=== PATIENT | female | born 1985 | race Caucasian/White ===

== ENCOUNTER 2018-02-28 19:56 | Emergency (ER) | payer MEDICAID, OTHER ==
[2018-02-28 20:39] VITALS: BP 130/87
--- NOTE | 2018-02-28 20:39 | RAD ---
Indication: Right knee pain. 4 views of the right knee demonstrates joint space to be well preserved. Instrumentation of the tibial tuberosity. IMPRESSION: Instrumentation of the tibial tuberosity with no recent injury.
[2018-02-28] MEDS ORDERED: Ketorolac INJ* 60 MG/2 ML VIAL IM ONE (20:54)
[2018-02-28 21:25] LABS: EGFR Non-African American 126.3 (>60); Uric Acid 2.8 mg/dL (2.3-6.6)
[2018-02-28 21:34] LABS: ABS Basophils 0 10^3/ul (0-0.2); ABS Eosinophils 0.1 10^3/ul (0-0.6); ABS Lymphocytes 3.1 10^3/ul (1.0-4.8); ABS Monocytes 0.7 10^3/ul (0-0.8); ABS Neutrophils 5.3 10^3/ul (1.5-7.7); ABS Nucleated RBC 0 10^3/ul; Eosinophil % 1.5 % (0-6); Hematocrit 40 % (35-47); Hemoglobin 13.3 g/dl (12.0-16.0); Lymphocyte % 33.9 % (25-47); Mean Corpuscular HGB Conc 34 g/dl (31-36); Mean Corpuscular Hemoglobin 31 pg (27-31); Mean Corpuscular Volume 92 fL (80-97); Mean Platelet Volume 8.3 um3 (7.4-10.4); Nucleated Red Blood Cells % 0.1; Platelet Count 249 10^3/ul (150-450); Red Blood Count 4.29 10^6/ul (4.0-5.4); Red Cell Distribution Width 14 % (10.5-15); White Blood Count 9.3 10^3/ul (3.5-10.8)
--- NOTE | 2018-03-01 20:46 | ED ---
Marques Watt Tiffany, scribed for Tevin Kunz MD on 02/28/18 at 2024 . Lower Extremity - HPI Summary HPI Summary: 32 year old F BIBA to [facility] complains of right knee pain s/p dislocating both knees while walking one hour ago. The patient rates the pain 8/10 in severity. Symptoms aggravated by straightening her right let. Symptoms alleviated by nothing. Patient reports right knee edema. States that right knee "went in by itself" after twisting her knees. Had right knee surgery in 2011 at [place], after which patient has had post-surgery problems with her right knee. - History of Current Complaint Stated Complaint: RT KNEE PAIN Time Seen by Provider: 02/28/18 20:08 Hx Obtained From: Patient Onset/Duration: Still Present - one hour ago Severity Currently: Severe Pain Intensity: 8 Pain Scale Used: 0-10 Numeric Location: Is Discrete @ - right knee Associated Signs And Symptoms: Positive: Swelling - right knee Aggravating Factor(s): Other - straightening R leg Alleviating Factor(s): Nothing - Allergies/Home Medications Allergies/Adverse Reactions: Allergies Allergy/AdvReac Type Severity Reaction Status Date / Time Penicillins Allergy Unknown Verified 02/28/18 21:06 Reaction Details Sulfa (Sulfonamide Allergy Unknown Verified 02/28/18 21:06 Antibiotics) Reaction Details Home Medications: Home Medications Citalopram TAB* [CeleXA TAB*] 20 mg PO DAILY 02/28/18 [History Confirmed ] Norethindrone-E.estradiol-Iron [Willy Fe 10/13] 1 tab PO DAILY 02/28/18 [History Confirmed 02/28/18] QUEtiapine TAB* [Seroquel 100 MG *] 100 mg PO BEDTIME 02/28/18 [History Confirmed 02/28/18] ValACYclovir (*) [Valtrex 500 mg (*)] 500 mg PO DAILY 02/28/18 [History Confirmed 02/28/18] PMH/Surg Hx/FS Hx/Imm Hx Previously Healthy: No Endocrine/Hematology History: Denies: Hx Diabetes Cardiovascular History: Denies: Hx Hypertension Respiratory History: Denies: Hx Asthma Sensory History: Denies: Hx Legally Blind, Hx Deafness Opthamlomology History: Denies: Hx Legally Blind EENT History: Denies: Hx Deafness Psychiatric History: Reports: Hx Depression - Surgical History Surgery Procedure, Year, and Place: Right knee surgery in 2012 in [place] - Family History Known Family History: Positive: Other - Reviewed and non-contributory - Social History Alcohol Use: None Hx Substance Use: No Substance Use Type: Reports: None Review of Systems Negative: Fever Positive: Edema - right knee, Other - right knee pain All Other Systems Reviewed And Are Negative: Yes Physical Exam - Summary Physical Exam Summary: VITAL SIGNS: Reviewed. GENERAL: Patient is a well-developed and nourished male who is lying comfortable in the stretcher. Patient is not in any acute respiratory distress. HEAD AND FACE: Normocephalic and atraumatic. EYES: PERRLA, EOMI x 2, No injected conjunctiva. EARS: Hearing grossly intact. Ear canals and tympanic membranes are WNL. MOUTH: Oropharynx within normal limits. NECK: Supple, trachea is midline, no adenopathy, no JVD. CHEST: Symmetric, no tenderness at palpation LUNGS: Clear to auscultation bilaterally. No wheezing or crackles. CVS: RRR, S1 and S2 present, no murmurs or gallops appreciated. ABDOMEN: Soft, non-tender. No signs of distention. Positive bowel sounds. No rebound no guarding, and no masses palpated. No abdominal bruit or pulsations. EXTREMITIES: The patient's right knee has effusion. There is no hematoma, no deformity. There is a scar on her right knee after surgery. The right knee is tender upon palpation. Raise test is negative. NEURO: Alert and oriented x 3. No acute neurological deficits. Speech is normal. SKIN: Dry and warm Triage Information Reviewed: Yes Vital Signs On Initial Exam: Initial Vitals Temp Pulse Resp BP Pulse Ox 98.1 F 78 16 130/87 98 02/28/18 20:36 02/28/18 20:36 02/28/18 20:36 02/28/18 20:36 02/28/18 20:36 Vital Signs Reviewed: Yes Diagnostics - Vital Signs Vital Signs Temp Pulse Resp BP Pulse Ox 02/28/18 22:03 98.1 F 78 16 130/87 98 02/28/18 20:36 98.1 F 78 16 130/87 98 - Laboratory Lab Results: Lab Results 02/28/18 02/28/18 02/28/18 Range/Units 20:48 20:48 20:48 WBC 9.3 (3.5-10.8) 10^3/ul RBC 4.29 (4.0-5.4) 10^6/ul Hgb 13.3 (12.0-16.0) g/dl Hct 40 (35-47) % MCV 92 (80-97) fL MCH 31 (27-31) pg MCHC 34 (31-36) g/dl RDW 14 (10.5-15) % Plt Count 249 (150-450) 10^3/ul MPV 8.3 (7.4-10.4) um3 Neut % (Auto) 57.1 (38-83) % Lymph % (Auto) 33.9 (25-47) % [place] % (Auto) 7.0 (0-7) % Eos % (Auto) 1.5 (0-6) % Baso % (Auto) 0.5 (0-2) % Absolute Neuts (auto) 5.3 (1.5-7.7) 10^3/ul Absolute Lymphs (auto) 3.1 (1.0-4.8) 10^3/ul Absolute Monos (auto) 0.7 (0-0.8) 10^3/ul Absolute Eos (auto) 0.1 (0-0.6) 10^3/ul Absolute Basos (auto) 0 (0-0.2) 10^3/ul Absolute Nucleated RBC 0 10^3/ul Nucleated RBC % 0.1 ESR 17 H (0-14) mm/Hr Sodium 138 L (139-145) mmol/L Potassium 3.5 (3.5-5.0) mmol/L Chloride 104 (101-111) mmol/L Carbon Dioxide 24 (22-32) mmol/L Anion Gap 10 (2-11) mmol/L BUN 10 (6-24) mg/dL Creatinine 0.56 (0.51-0.95) mg/dL Est GFR ( Amer) 162.4 (>60) Est GFR (Non-Af Amer) 126.3 (>60) BUN/Creatinine Ratio 17.9 (8-20) Glucose 96 (70-100) mg/dL Lactic Acid 1.8 (0.5-2.0) mmol/L Uric Acid 2.8 (2.3-6.6) mg/dL Calcium 9.1 (8.6-10.3) mg/dL Total Bilirubin 0.30 (0.2-1.0) mg/dL AST 10 L (13-39) U/L ALT 11 (7-52) U/L Alkaline Phosphatase 44 (34-104) U/L C-Reactive Protein 3.22 (< 5.00) mg/L Total Protein 7.1 (6.4-8.9) g/dL Albumin 3.9 (3.2-5.2) g/dL Globulin 3.2 (2-4) g/dL Albumin/Globulin Ratio 1.2 (1-3) Result Diagrams: 02/28/18 20:48 02/28/18 20:48 Lab Statement: Any lab studies that have been ordered have been reviewed, and results considered in the medical decision making process. - Radiology Knee Radiology Interpretation Completed By: Radiologist - Instrumentation of the tibial tuberosity with no recent injury. ED physician has reviewed this report. Re-Evaluation - Re-Evaluation First Eval Re-Evaluation Time: 21:40 Comment: patient is agreeable to discharge Lower Extremity Course/Dx - Course Assessment/Plan: This patient is a 32-year-old female who presents to the emergency department with chief complaint of having right knee pain. Patient denies any fever, denies any chills. She reports that the symptoms started after she Had an accidental fall tonight. In the physical exam the patient has right knee effusion, she is with diminished range of motion secondary to pain, but the daughter is negative. She has no increase in temperature, has no deformity, no ecchymosis. X-ray of the right knee shows instrumentation of the tibial tuberosity without recent injury. The patient doesnt have any fever, no increase in temperature, there is no erythema to think that the patient has a septic knee at this time. Therefore the patient will be placed in a knee immobilizer and discharged home with a prescription for naproxen , follow with primary care physician. She was instructed to return to the emergency department if patient develops any fevers, redness more swelling, more pain. She understands and agrees. - Diagnoses Differential Diagnosis/HQI/PQRI: Positive: Bursitis, Cellulitis, Contusion, Dislocation, Fracture (Closed), Infection, Sprain, Strain, Tendonitis, Other - Septic knee Provider Diagnoses: Knee pain Discharge - Sign-Out/Discharge Documenting (check all that apply): Discharge/Admit/Transfer - Discharge Plan Condition: Stable Disposition: HOME Prescriptions: Naproxen [Naprosyn 500 mg tab] 500 mg PO BID PRN #20 tablet PRN Reason: Pain Patient Education Materials: Knee Pain (ED) Referrals: [facility] [place] [facility] [Outside] - 3 Days No Primary Care Phys,NOPCP [Primary Care Provider] - Additional Instructions: FOLLOW UP WITH PRIMARY CARE PROVIDER IN 2-3 DAYS. RETURN TO THE EMERGENCY DEPARTMENT FOR ANY NEW OR WORSENING SYMPTOMS. - Billing Disposition and Condition Condition: STABLE Disposition: Home The documentation as recorded by the Marques stewart Tiffany accurately reflects the service I personally performed and the decisions made by Ze law Walter, MD.
== END 2018-02-28 22:03 | disposition home or self-care (01) ==
LOC: ED 19:56
DX: M25.561 Pain in right knee (principal); X50.1XXA Overexertion from prolonged static or awkward postures, initial encounter; Y93.01 Activity, walking, marching and hiking; Y92.9 Unspecified place or not applicable; F32.9 Major depressive disorder, single episode, unspecified
CPT/HCPCS: 36415; 80053; 83605; 84550; 85025; 85652; 86140; 96372; 99282; J1885